=== PATIENT | female | born 1945 | race Caucasian/White ===

== ENCOUNTER 2018-05-14 09:31 | Inpatient (IN) | payer MEDICARE ==
[~2018-05-14] VITALS: Ht 161.3 cm; Wt 82.5 kg
[2018-05-14 10:32] LABS: BASOPHILS # (AUTO) 0.03 x10^3/uL (0-0.1); BASOPHILS % (AUTO) 1 % (0-1); EOSINOPHILS # (AUTO) 0.09 x10^3/uL (0-0.4); EOSINOPHILS % (AUTO) 2 % (1-7); LYMPHOCYTES # (AUTO) 0.84 x10^3/uL (1-3.4); LYMPHOCYTES % (AUTO) 15 % (22-44); MD NO; MEAN CORPUSCULAR HEMOGLOBIN 26.3 pg (27.0-34.8); MEAN CORPUSCULAR HGB CONC 33.4 g/dL (32.4-35.8); MEAN CORPUSCULAR VOLUME 78.7 fL (80-100); MEAN PLATELET VOLUME 7.2 fL (7.4-10.4); MONOCYTES # (AUTO) 0.27 x10^3/uL (0.2-0.8); MONOCYTES % (AUTO) 5 % (2-9); NEUTROPHILS # (AUTO) 4.37 x10^3/uL (1.8-6.8); NEUTROPHILS % (AUTO) 78 % (42-75); PLATELET COUNT 376 x10^3/uL (130-400); RED BLOOD COUNT 4.91 x10^6/uL (3.82-5.3); RED CELL DISTRIBUTION WIDTH 13.3 % (9.6-15.2)
[2018-05-14 10:44] LABS: CHLORIDE 109 mmol/L (98-107)
[2018-05-14 10:50] LABS: ALANINE AMINOTRANSFERASE 22 U/L (12-78); ALBUMIN 3.6 g/dL (3.4-5.0); ALKALINE PHOSPHATASE 77 U/L (45-117); ANION GAP 7 mmol/L (5-15); BILIRUBIN,TOTAL 0.6 mg/dL (0.2-1.0); CALCIUM 8.8 mg/dL (8.5-10.1); CREATININE 0.88 mg/dL (0.55-1.02); TOTAL PROTEIN 7.5 g/dL (6.4-8.2)
--- NOTE | 2018-05-14 11:15 | NUR ---
PT TO CT WITH TECH TRANSPORT
[2018-05-14] MEDS ORDERED: OMNIPAQUE 350 MG/ML, 75ML BOTTLE ONE (11:34)
--- NOTE | 2018-05-14 12:08 | NUR ---
DR WILD AT BEDSIDE, ADMIT PLAN DISCUSSED AND QUESTIONS ANSWERED.
--- NOTE | 2018-05-14 14:02 | NUR ---
REPORT FROM ISA ALMAGUER. PT SITTING UP IN [place] NOTED. FRIEND AT BEDSIDE. BP/SPO2 MONITOR IN PLACE. PT UPDATED TO POC (ADMIT, ED HOLD) AND DEMONSTRATES UNDERSTANDING.
--- NOTE | 2018-05-14 14:08 | NUR ---
ECG MONITORING IN PLACE, NSR ON MONITOR.
--- NOTE | 2018-05-14 14:54 | NUR ---
MECHANICAL SOFT MEAL TRAY DELIVERED TO PT.
[2018-05-14] MEDS: SODIUM CHLORIDE 0.9% 1,000 ML IV SCH (16:29)
[2018-05-14] MEDS ORDERED: ACETAMINOPHEN 325 MG TABLET PO PRN (16:30)
[2018-05-14] MEDS ORDERED: LABETALOL 5MG/ML, 20ML IVPush PRN (16:30)
[2018-05-14] MEDS ORDERED: hydrALAzine 20 MG/ML, 1ML IVPush PRN (16:30)
[2018-05-14 16:50] LABS: INTERNATIONAL NORMALIZED RATIO 0.94 (0.93-1.1); PROTHROMBIN TIME 9.9 Seconds (9.6-11.5)
--- NOTE | 2018-05-14 16:59 | NUR ---
REPORT TO ISA BOTELLO ON FLOOR. PT PREPARED FOR TRANSPORT.
[2018-05-14 17:12] LABS: HCT (SEDRATE) 37.5 % (34.6-47.8)
[2018-05-14 17:43] VITALS: BP 176/91
[2018-05-14 19:24] VITALS: BP 195/97
[2018-05-14] MEDS ORDERED: LISINOPRIL 5 MG TABLET PO SCH (21:00)
[2018-05-15 00:46] VITALS: BP 155/84
[2018-05-15 05:39] LABS: BASOPHILS # (AUTO) 0.02 x10^3/uL (0-0.1); BASOPHILS % (AUTO) 0 % (0-1); EOSINOPHILS # (AUTO) 0.19 x10^3/uL (0-0.4); EOSINOPHILS % (AUTO) 4 % (1-7); LYMPHOCYTES # (AUTO) 1.07 x10^3/uL (1-3.4); LYMPHOCYTES % (AUTO) 20 % (22-44); MD NO; MEAN CORPUSCULAR HEMOGLOBIN 26.3 pg (27.0-34.8); MEAN CORPUSCULAR HGB CONC 33.4 g/dL (32.4-35.8); MEAN CORPUSCULAR VOLUME 78.9 fL (80-100); MEAN PLATELET VOLUME 7.4 fL (7.4-10.4); MONOCYTES # (AUTO) 0.28 x10^3/uL (0.2-0.8); MONOCYTES % (AUTO) 5 % (2-9); NEUTROPHILS # (AUTO) 3.83 x10^3/uL (1.8-6.8); NEUTROPHILS % (AUTO) 71 % (42-75); PLATELET COUNT 308 x10^3/uL (130-400); RED BLOOD COUNT 4.41 x10^6/uL (3.82-5.3); RED CELL DISTRIBUTION WIDTH 13.8 % (9.6-15.2)
[2018-05-15 05:51] LABS: CHLORIDE 113 mmol/L (98-107)
[2018-05-15 06:01] LABS: ALANINE AMINOTRANSFERASE 17 U/L (12-78); ALBUMIN 2.9 g/dL (3.4-5.0); ALKALINE PHOSPHATASE 67 U/L (45-117); ANION GAP 7 mmol/L (5-15); BILIRUBIN,TOTAL 0.3 mg/dL (0.2-1.0); CALCIUM 8.9 mg/dL (8.5-10.1); CREATININE 0.65 mg/dL (0.55-1.02); TOTAL PROTEIN 6.1 g/dL (6.4-8.2)
[2018-05-15 07:45] VITALS: BP 156/89
[2018-05-15] MEDS ORDERED: HYDROCHLOROTHIAZIDE 25 MG TABLET PO SCH (09:00)
[2018-05-15] MEDS ORDERED: LISINOPRIL 20 MG TABLET PO SCH (09:00)
[2018-05-15] MEDS ORDERED: OMNIPAQUE 350 MG/ML, 100ML BOTTLE ONE ×2 (10:22→10:26)
[2018-05-15] MEDS: SODIUM CHLORIDE 0.9% 1,000 ML IV SCH (12:24)
[2018-05-15] MEDS ORDERED: LISI-170 PO (13:10)
[2018-05-15] MEDS ORDERED: CLON0.1T22 PO (13:10)
[2018-05-15] MEDS ORDERED: HYDR25TA6 PO (13:10)
[2018-05-15] MEDS ORDERED: POTA20TA6 PO (13:18)
[2018-05-15 14:52] VITALS: BP 149/83
== END 2018-05-15 15:30 | disposition home or self-care (01) | DRG 204 ==
LOC: ED 13:02 → EDBD 13:34 → EDIP 13:34 → 3NE 16:57 → DCLOUNGE 05-15 15:12
PROVIDERS: ADMIT Hospitalist; ATTEND Hospitalist
DX: R04.2 Hemoptysis (principal); I10 Essential (primary) hypertension; I16.0 Hypertensive urgency; R91.8 Other nonspecific abnormal finding of lung field; R73.9 Hyperglycemia, unspecified; R71.8 Other abnormality of red blood cells; R59.0 Localized enlarged lymph nodes; R06.89 Other abnormalities of breathing; Z85.828 Personal history of other malignant neoplasm of skin; Z85.42 Personal history of malignant neoplasm of other parts of uterus; Z87.891 Personal history of nicotine dependence; Z90.710 Acquired absence of both cervix and uterus; Z91.19 Patient's noncompliance with other medical treatment and regimen; Z93.3 Colostomy status; Z88.5 Allergy status to narcotic agent; T14.90XA Injury, unspecified, initial encounter
CPT/HCPCS: 36415; 71046; 71250; 71260; 74177; 80053; 82728; 83540; 83550; 85025; 85610; 85651; 85730; 86140; 87070; 87205; 93005; 99285; G0378; Q9967; J7030

== ENCOUNTER 2018-05-18 09:04 | Day surgery (SDC) | payer MEDICARE ==
[~2018-05-18] VITALS: Ht 161.3 cm; Wt 80.1 kg
[~2018-05-18 09:04] MED LIST: CLON0.1T22 PO; HYDR25TA6 PO; LISI-170 PO; POTA20TA6 PO
[2018-05-18] MEDS ORDERED: LACTATED RINGERS 1,000 ML IV SCH (10:17)
[2018-05-18 10:20] VITALS: BP 139/84
[2018-05-18] MEDS ORDERED: HYDR25TA6 PO (10:20)
[2018-05-18] MEDS ORDERED: CLON0.1T22 PO (10:20)
[2018-05-18] MEDS ORDERED: LISI-170 PO (10:20)
[2018-05-18] MEDS ORDERED: POTA20TA6 PO (10:20)
[2018-05-18] MEDS ORDERED: PROPOFOL 50 ML ONE ×2 (10:55→11:49)
[2018-05-18] MEDS ORDERED: MIDAZOLAM 1 MG/ML, 2ML ONE (10:55)
[2018-05-18] MEDS ORDERED: FENTANYL PF 100 MCG/2ML ONE ×2 (10:55→11:49)
[2018-05-18] MEDS ORDERED: ALBUTEROL SULFATE 2.5 MG/3 ML ONE (12:19)
[2018-05-18] MEDS ORDERED: KETOROLAC 30 MG/1 ML IV PRN (12:30)
[2018-05-18] MEDS ORDERED: LORazepam 2 MG/ML, 1ML IVPush PRN (12:30)
[2018-05-18] MEDS ORDERED: PROMETHAZINE 25 MG/ML, 1ML IV PRN (12:30)
[2018-05-18] MEDS ORDERED: FENTANYL PF 100 MCG/2ML IV PRN (12:30)
[2018-05-18] MEDS ORDERED: ACETAMINOPHEN 325 MG TABLET PO PRN (12:30)
[2018-05-18] MEDS ORDERED: OXYcodone 5 MG/5 ML ORAL.SOL UDC PO PRN (12:30)
[2018-05-18] MEDS ORDERED: ALBUTEROL SULFATE 2.5 MG/3 ML NPPB PRN (12:30)
[2018-05-18] MEDS ORDERED: ONDANSETRON 2MG/ML, 2ML IV PRN (12:30)
[2018-05-18] MEDS ORDERED: ROCURONIUM 10MG/ML,5ML ONE (14:40)
[2018-05-18] MEDS ORDERED: SUCCINYLCHOLINE 20 MG/ML, 10ML ONE (14:40)
== END 2018-05-18 14:30 | disposition home or self-care (01) ==
LOC: OUT 09:04
PROVIDERS: ATTEND Internal Medicine
DX: J18.9 Pneumonia, unspecified organism (principal); I10 Essential (primary) hypertension; M35.9 Systemic involvement of connective tissue, unspecified; Z88.8 Allergy status to other drugs, medicaments and biological substances; Z85.828 Personal history of other malignant neoplasm of skin; Z85.42 Personal history of malignant neoplasm of other parts of uterus; Z90.710 Acquired absence of both cervix and uterus; Z93.3 Colostomy status
CPT/HCPCS: 31623; 31624; 31627; 31628; 31629; 71045; 76000; 88112; 88172; 88173; 88177; 88305; 94640; J0330; J2250; J2704; J3010; J7120; J7613

== ENCOUNTER 2018-05-25 03:18 | Inpatient (IN) | payer MEDICARE ==
[~2018-05-25] VITALS: Ht 160 cm; Wt 84.5 kg
[2018-05-25] MEDS ORDERED: MORPHINE SULFATE 4 MG/ML, 1ML ONE ×3 (03:46→04:48)
[2018-05-25] MEDS ORDERED: ONDANSETRON 2MG/ML, 2ML ONE (03:46)
[2018-05-25] MEDS: MORPHINE SULFATE 4 MG/ML, 1ML IVPush PRN ×7 (03:50→20:58)
[2018-05-25] MEDS ORDERED: MORPHINE SULFATE 4 MG/ML, 1ML IVPush PRN (04:00)
[2018-05-25] MEDS ORDERED: SODIUM CHLORIDE 0.9% 1,000ML IVBOLUS ONE ×2 (04:00)
[2018-05-25] MEDS ORDERED: ONDANSETRON 2MG/ML, 2ML IVPush ONE (04:00)
[2018-05-25] MEDS ORDERED: SODIUM CHLORIDE FLUSH 10ML SYR IVF ONE ×2 (04:00)
--- NOTE | 2018-05-25 04:08 | NUR ---
PT HERE FOR SUDDEN ONSET CHEST PAIN ON THE LEFT SIDE. PT TACHYCARDIC. PIV PLACED AND PT MEDICATED FOR PAIN AND NAUSEA. FLUIDS RUNNING. PT TO CT.
[2018-05-25 04:12] LABS: MEAN CORPUSCULAR HEMOGLOBIN 26.1 pg (27.0-34.8); MEAN CORPUSCULAR HGB CONC 33.6 g/dL (32.4-35.8); MEAN CORPUSCULAR VOLUME 77.9 fL (80-100); MEAN PLATELET VOLUME 7.3 fL (7.4-10.4); PLATELET COUNT 380 x10^3/uL (130-400); RED BLOOD COUNT 4.72 x10^6/uL (3.82-5.3); RED CELL DISTRIBUTION WIDTH 13.8 % (9.6-15.2)
[2018-05-25 04:20] LABS: INTERNATIONAL NORMALIZED RATIO 0.97 (0.93-1.1); PROTHROMBIN TIME 10.2 Seconds (9.6-11.5)
[2018-05-25 04:22] LABS: ALBUMIN 3.2 g/dL (3.4-5.0); ANION GAP 8 mmol/L (5-15); CALCIUM 9.4 mg/dL (8.5-10.1); CHLORIDE 106 mmol/L (98-107)
[2018-05-25 04:28] LABS: ALANINE AMINOTRANSFERASE 27 U/L (12-78); ALKALINE PHOSPHATASE 70 U/L (45-117); BILIRUBIN,TOTAL 0.5 mg/dL (0.2-1.0); CREATININE 0.96 mg/dL (0.55-1.02); TOTAL PROTEIN 6.9 g/dL (6.4-8.2); TROPONIN I < 0.015 ng/mL (0.000-0.045)
[2018-05-25 04:34] LABS: BASOPHILS % (AUTO) 0 % (0-1); EOSINOPHILS # (AUTO) 0.05 x10^3/uL (0-0.4); EOSINOPHILS % (AUTO) 1 % (1-7); LYMPHOCYTES # (AUTO) 0.36 x10^3/uL (1-3.4); LYMPHOCYTES % (AUTO) 4 % (22-44); MD SCAN; MONOCYTES # (AUTO) 0.13 x10^3/uL (0.2-0.8); MONOCYTES % (AUTO) 1 % (2-9); NEUTROPHILS # (AUTO) 9.31 x10^3/uL (1.8-6.8); NEUTROPHILS % (AUTO) 95 % (42-75)
[2018-05-25] MEDS ORDERED: OMNIPAQUE 350 MG/ML, 100ML BOTTLE ONE (05:00)
--- NOTE | 2018-05-25 05:15 | NUR ---
PT REMEDICATED FOR PAIN. PT SAYS PAIN HAS SLIGHTLY IMPROVED. PT STILL TACHY. AWARE. WAITING FOR CT. SPOUSE AT BEDSIDE
[2018-05-25] MEDS ORDERED: CEFTRIAXONE PMX 1GM/50ML 50 ML ONE (05:26)
[2018-05-25] MEDS ORDERED: AZITHROMYCIN 500 MG in SODIUM CHLORIDE 0.9% 250 ML IVPB ONE (05:30)
[2018-05-25] MEDS ORDERED: CEFTRIAXONE PMX 1GM/50ML 50 ML IVPB ONE (05:30)
--- NOTE | 2018-05-25 05:35 | NUR ---
ABX RUNNING. HR ELEVATED. AWARE. PT RESTING AND SAYS PAIN HAS IMPROVED TO 5/10. CALL LIGHT IN REACH
[2018-05-25] MEDS ORDERED: ACETAMINOPHEN 325 MG TABLET PO PRN (06:00)
[2018-05-25] MEDS ORDERED: ONDANSETRON 2MG/ML, 2ML IVPush PRN (06:00)
[2018-05-25] MEDS ORDERED: ALBUTEROL/IPRATROPIUM 2.5MG/0.5MG, 3 ML HHN PRN (06:00)
[2018-05-25 06:27] VITALS: BP 135/74
[2018-05-25] MEDS ORDERED: ACETAMINOPHEN 650 MG SUPP PR PRN (07:00)
[2018-05-25] MEDS ORDERED: PHARMACOKINETIC MONITORING MC PRN (07:00)
[2018-05-25] MEDS ORDERED: ONDANSETRON 2MG/ML, 2ML IVPB PRN (07:00)
[2018-05-25] MEDS ORDERED: VANCOMYCIN PER PHARMACY MC PRN (07:00)
[2018-05-25] MEDS ORDERED: PHARMACY MAY ADJ FOR RENAL FX MC PRN (07:00)
[2018-05-25] MEDS ORDERED: KETOROLAC 30 MG/1 ML IVPush PRN (07:00)
[2018-05-25] MEDS ORDERED: DOCUSATE 100 MG CAPSULE PO PRN (07:00)
[2018-05-25] MEDS ORDERED: morphine SULFATE 10 MG/ML, 1ML ONE (07:06)
[2018-05-25] MEDS: PIPERACILLIN/TAZO/PMX 4.5GM 100 ML IVPB SCH ×2 (08:24→16:09)
[2018-05-25] MEDS ORDERED: LORazepam 2 MG/ML, 1ML ONE (08:42)
[2018-05-25] MEDS: LORazepam 2 MG/ML, 1ML IVPush PRN (08:45)
[2018-05-25] MEDS ORDERED: HYDROCHLOROTHIAZIDE 25 MG TABLET PO SCH (09:00)
[2018-05-25] MEDS ORDERED: LISINOPRIL 20 MG TABLET PO SCH ×2 (09:00→21:00)
[2018-05-25] MEDS: VANCOMYCIN 1,500 MG in SODIUM CHLORIDE 0.9% 250 ML IV SCH (09:33)
[2018-05-25] MEDS: GUAIFENESIN 200 MG TABLET PO SCH ×3 (09:42→20:58)
[2018-05-25] MEDS: ACETAMINOPHEN 325 MG TABLET PO SCH ×4 (09:42→20:58)
[2018-05-25] MEDS ORDERED: KETOROLAC 30 MG/1 ML IVPush ONE (10:00)
[2018-05-25 10:16] LABS: TROPONIN I < 0.015 ng/mL (0.000-0.045)
[2018-05-25 10:37] LABS: RAPID INFLUENZA A Negative (Negative); RAPID INFLUENZA B Negative (Negative)
[2018-05-25] MEDS ORDERED: LIDOCAINE-MPF 1%, 5ML ONE (12:04)
[2018-05-25 14:00] VITALS: BP 118/78
[2018-05-25] MEDS ORDERED: CHLO25TA PO (15:40)
[2018-05-25 16:05] LABS: TROPONIN I < 0.015 ng/mL (0.000-0.045)
[2018-05-25] MEDS: KETOROLAC 30 MG/1 ML IVPush PRN (16:09)
[2018-05-25 19:06] VITALS: BP 125/75
[2018-05-26] MEDS: PIPERACILLIN/TAZO/PMX 4.5GM 100 ML IVPB SCH ×4 (00:03→23:31)
[2018-05-26] MEDS: KETOROLAC 30 MG/1 ML IVPush PRN (00:04)
[2018-05-26] MEDS: ACETAMINOPHEN 325 MG TABLET PO SCH ×6 (00:04→23:26)
[2018-05-26 01:23] VITALS: BP 146/79
[2018-05-26] MEDS: MORPHINE SULFATE 4 MG/ML, 1ML IVPush PRN ×5 (04:08→20:21)
[2018-05-26 05:23] LABS: MEAN CORPUSCULAR HEMOGLOBIN 26.2 pg (27.0-34.8); MEAN CORPUSCULAR HGB CONC 32.5 g/dL (32.4-35.8); MEAN CORPUSCULAR VOLUME 80.6 fL (80-100); MEAN PLATELET VOLUME 7.6 fL (7.4-10.4); PLATELET COUNT 370 x10^3/uL (130-400); RED BLOOD COUNT 4.73 x10^6/uL (3.82-5.3); RED CELL DISTRIBUTION WIDTH 13.9 % (9.6-15.2)
[2018-05-26 05:25] LABS: ALBUMIN 2.7 g/dL (3.4-5.0); ANION GAP 9 mmol/L (5-15); CALCIUM 8.9 mg/dL (8.5-10.1); CHLORIDE 105 mmol/L (98-107)
[2018-05-26] MEDS: GUAIFENESIN 200 MG TABLET PO SCH ×4 (05:26→20:20)
[2018-05-26 05:30] LABS: ALANINE AMINOTRANSFERASE 22 U/L (12-78); ALKALINE PHOSPHATASE 55 U/L (45-117); BILIRUBIN,TOTAL 0.7 mg/dL (0.2-1.0); CREATININE 1.43 mg/dL (0.55-1.02); TOTAL PROTEIN 6.7 g/dL (6.4-8.2)
[2018-05-26] MEDS ORDERED: DOXYCYCLINE 100 MG in DEXTROSE 5% 250 ML IV SCH (05:30)
[2018-05-26] MEDS ORDERED: CEFTRIAXONE PMX 1GM/50ML 50 ML IV SCH (05:30)
[2018-05-26 06:24] LABS: MD YES
[2018-05-26 06:26] LABS: BAND#(MANUAL) 1.14 x10^3/uL; BANDS%(MANUAL) 6 % (0-7); LYMPH#(MANUAL) 1.52 x10^3/uL (1-3.4); LYMPHS% (MANUAL) 8 % (22-44); MONOS#(MANUAL) 0.19 x10^3/uL (0.3-2.7); MONOS% (MANUAL) 1 % (2-9); SEG#(MANUAL) 16.15 x10^3/uL (1.8-6.8); SEGS% (MANUAL) 85 % (42-75)
[2018-05-26 06:27] LABS: <RBC MORPHOLOGY> NORMAL
[2018-05-26 06:28] LABS: <PLATELET ESTIMATE> ADEQUATE; <PLT MORPHOLOGY> NORMAL PLT MORPH
[2018-05-26 07:28] VITALS: BP 144/79
[2018-05-26] MEDS ORDERED: D5%-0.45% NACL 1,000 ML IV SCH (08:00)
[2018-05-26] MEDS: VANCOMYCIN 1,500 MG in SODIUM CHLORIDE 0.9% 250 ML IV SCH (09:39)
[2018-05-26 13:30] VITALS: BP 138/78
[2018-05-26] MEDS: SODIUM CHLORIDE 0.9% 1,000 ML IV SCH (16:08)
[2018-05-26 17:00] LABS: ANION GAP 7 mmol/L (5-15); CALCIUM 8.8 mg/dL (8.5-10.1); CHLORIDE 106 mmol/L (98-107); CREATININE 1.04 mg/dL (0.55-1.02)
[2018-05-26 20:27] VITALS: BP 165/89
[2018-05-27] MEDS: MORPHINE SULFATE 4 MG/ML, 1ML IVPush PRN ×5 (00:43→20:34)
[2018-05-27 01:12] VITALS: BP 168/82
[2018-05-27] MEDS: SODIUM CHLORIDE 0.9% 1,000 ML IV SCH ×2 (03:31→14:18)
[2018-05-27] MEDS: ACETAMINOPHEN 325 MG TABLET PO SCH ×5 (03:32→20:19)
[2018-05-27] MEDS: GUAIFENESIN 200 MG TABLET PO SCH ×4 (05:14→20:20)
[2018-05-27 06:38] VITALS: BP 176/97
[2018-05-27] MEDS: LORazepam 2 MG/ML, 1ML IVPush PRN (07:46)
[2018-05-27] MEDS: PIPERACILLIN/TAZO/PMX 4.5GM 100 ML IVPB SCH (07:46)
[2018-05-27] MEDS: METOPROLOL TARTRATE 25 MG TABLET PO SCH ×2 (08:12→18:33)
[2018-05-27 09:22] LABS: MEAN CORPUSCULAR HGB CONC 32.7 g/dL (32.4-35.8); MEAN CORPUSCULAR VOLUME 79.5 fL (80-100); MEAN PLATELET VOLUME 7.4 fL (7.4-10.4); PLATELET COUNT 378 x10^3/uL (130-400); RED BLOOD COUNT 4.61 x10^6/uL (3.82-5.3); RED CELL DISTRIBUTION WIDTH 14.1 % (9.6-15.2)
[2018-05-27 09:27] LABS: ANION GAP 7 mmol/L (5-15); CALCIUM 8.8 mg/dL (8.5-10.1); CHLORIDE 106 mmol/L (98-107); CREATININE 0.57 mg/dL (0.55-1.02)
[2018-05-27 09:36] LABS: BASOPHILS % (AUTO) 0 % (0-1); EOSINOPHILS % (AUTO) 0 % (1-7); LYMPHOCYTES # (AUTO) 0.36 x10^3/uL (1-3.4); LYMPHOCYTES % (AUTO) 2 % (22-44); MD SCAN; MONOCYTES # (AUTO) 0.24 x10^3/uL (0.2-0.8); MONOCYTES % (AUTO) 1 % (2-9); NEUTROPHILS # (AUTO) 22.54 x10^3/uL (1.8-6.8); NEUTROPHILS % (AUTO) 97 % (42-75)
[2018-05-27] MEDS ORDERED: VANCOMYCIN 1,600 MG in SODIUM CHLORIDE 0.9% 250 ML IV SCH (12:00)
[2018-05-27 12:16] LABS: HCT (SEDRATE) 36.6 % (34.6-47.8)
[2018-05-27 12:43] LABS: MEAN CORPUSCULAR HEMOGLOBIN 25.5 pg (27.0-34.8); MEAN CORPUSCULAR HGB CONC 31.9 g/dL (32.4-35.8); MEAN CORPUSCULAR VOLUME 79.8 fL (80-100); MEAN PLATELET VOLUME 7.5 fL (7.4-10.4); PLATELET COUNT 408 x10^3/uL (130-400); RED BLOOD COUNT 4.64 x10^6/uL (3.82-5.3); RED CELL DISTRIBUTION WIDTH 14.7 % (9.6-15.2)
[2018-05-27 13:14] LABS: BASOPHILS # (AUTO) 0.03 x10^3/uL (0-0.1); BASOPHILS % (AUTO) 0 % (0-1); EOSINOPHILS # (AUTO) 0.01 x10^3/uL (0-0.4); EOSINOPHILS % (AUTO) 0 % (1-7); LYMPHOCYTES # (AUTO) 0.53 x10^3/uL (1-3.4); LYMPHOCYTES % (AUTO) 2 % (22-44); MD SCAN; MONOCYTES % (AUTO) 3 % (2-9); NEUTROPHILS % (AUTO) 95 % (42-75)
[2018-05-27 14:30] VITALS: BP 174/84
[2018-05-27] MEDS ORDERED: FENTANYL PF 250 MCG/5ML ONE (14:53)
[2018-05-27] MEDS ORDERED: BUPIVACAINE/PF-EPI 0.5% 1:200K ONE (15:42)
[2018-05-27] MEDS ORDERED: BUPIVACAINE/PF-EPI 0.5% 1:200K INFIL ONE (16:35)
[2018-05-27] MEDS ORDERED: PROPOFOL 10 MG/ML, 20ML ONE (16:51)
[2018-05-27] MEDS ORDERED: METOCLOPRAMIDE 5 MG/ML, 2ML ONE (16:51)
[2018-05-27] MEDS ORDERED: SUCCINYLCHOLINE 20 MG/ML, 10ML ONE (16:51)
[2018-05-27] MEDS ORDERED: ONDANSETRON 2MG/ML, 2ML ONE (16:51)
[2018-05-27] MEDS ORDERED: DEXAMETHASONE 4 MG/ML, 1ML ONE (16:51)
[2018-05-27] MEDS ORDERED: ROCURONIUM 10MG/ML,5ML ONE (16:51)
[2018-05-27] MEDS ORDERED: OXYcodone 5 MG/5 ML ORAL.SOL UDC ONE (17:24)
[2018-05-27] MEDS ORDERED: MORPHINE SULFATE 4 MG/ML, 1ML ONE (17:24)
[2018-05-27] MEDS ORDERED: OXYcodone 5 MG/5 ML ORAL.SOL UDC PO PRN (17:30)
[2018-05-27] MEDS ORDERED: PROMETHAZINE 25 MG/ML, 1ML IV PRN (17:30)
[2018-05-27] MEDS ORDERED: MEPERIDINE/PF 25MG/0.5ML IVPush PRN (17:30)
[2018-05-27] MEDS ORDERED: hydrALAzine 20 MG/ML, 1ML IV PRN (17:30)
[2018-05-27] MEDS ORDERED: ONDANSETRON 2MG/ML, 2ML IV PRN (17:30)
[2018-05-27] MEDS ORDERED: MIDAZOLAM 1 MG/ML, 2ML IV PRN (17:30)
[2018-05-27] MEDS ORDERED: FENTANYL PF 100 MCG/2ML IV PRN (17:30)
[2018-05-27] MEDS ORDERED: MORPHINE SULFATE 4 MG/ML, 1ML IVPush PRN (17:30)
[2018-05-27] MEDS ORDERED: HYDROmorphone 2 MG/ML, 1ML IVPush PRN (17:30)
[2018-05-27] MEDS ORDERED: hydrALAzine 20 MG/ML, 1ML ONE (17:31)
[2018-05-27] MEDS ORDERED: ALBUTEROL SULFATE 2.5 MG/3 ML ONE (17:36)
[2018-05-27] MEDS: hydrALAzine 20 MG/ML, 1ML IV PRN (17:40)
[2018-05-27] MEDS ORDERED: ALBUTEROL SULFATE 2.5 MG/3 ML NPPB PRN (18:00)
[2018-05-27 18:30] VITALS: BP 139/81
[2018-05-27 18:53] VITALS: BP 137/80
[2018-05-27] MEDS: LINEZOLID 600 MG TABLET PO SCH (20:20)
[2018-05-28] VITALS (8 sets, daily range): BP systolic 141–185; BP diastolic 79–94
[2018-05-28] MEDS: ACETAMINOPHEN 325 MG TABLET PO SCH ×3 (00:01→08:36)
[2018-05-28] MEDS: MORPHINE SULFATE 4 MG/ML, 1ML IVPush PRN ×5 (01:06→23:35)
[2018-05-28] MEDS: SODIUM CHLORIDE 0.9% 1,000 ML IV SCH ×2 (03:02→12:28)
[2018-05-28 06:00] LABS: MEAN CORPUSCULAR HEMOGLOBIN 25.3 pg (27.0-34.8); MEAN CORPUSCULAR VOLUME 79.2 fL (80-100); MEAN PLATELET VOLUME 7.7 fL (7.4-10.4); PLATELET COUNT 425 x10^3/uL (130-400); RED BLOOD COUNT 4.19 x10^6/uL (3.82-5.3); RED CELL DISTRIBUTION WIDTH 14.5 % (9.6-15.2)
[2018-05-28 06:07] LABS: ANION GAP 6 mmol/L (5-15); CALCIUM 8.2 mg/dL (8.5-10.1); CHLORIDE 107 mmol/L (98-107); CREATININE 0.61 mg/dL (0.55-1.02)
[2018-05-28] MEDS: METOPROLOL TARTRATE 25 MG TABLET PO SCH ×2 (06:31→18:20)
[2018-05-28] MEDS: GUAIFENESIN 200 MG TABLET PO SCH ×4 (06:32→20:41)
[2018-05-28] MEDS ORDERED: FENTANYL PF 100 MCG/2ML IVPush PRN (07:00)
[2018-05-28 07:02] LABS: BASOPHILS % (AUTO) 0 % (0-1); EOSINOPHILS % (AUTO) 0 % (1-7); LYMPHOCYTES # (AUTO) 0.51 x10^3/uL (1-3.4); LYMPHOCYTES % (AUTO) 3 % (22-44); MD SCAN; MONOCYTES # (AUTO) 0.58 x10^3/uL (0.2-0.8); MONOCYTES % (AUTO) 3 % (2-9); NEUTROPHILS # (AUTO) 17.38 x10^3/uL (1.8-6.8); NEUTROPHILS % (AUTO) 94 % (42-75)
[2018-05-28] MEDS: LINEZOLID 600 MG TABLET PO SCH ×2 (08:37→20:41)
[2018-05-28] MEDS: AZITHROMYCIN 500 MG TABLET PO SCH (08:37)
[2018-05-28] MEDS ORDERED: ACETAMINOPHEN 325 MG TABLET PO PRN (10:30)
[2018-05-28] MEDS ORDERED: LIDODERM 5% PATCH TD SCH (10:30)
[2018-05-28] MEDS: DOCUSATE 100 MG CAPSULE PO SCH ×2 (10:54→20:41)
[2018-05-28] MEDS: HYDROcodone/APAP 5/325 TABLET PO PRN ×3 (10:55→20:41)
[2018-05-28] MEDS ORDERED: LIDODERM 5% PATCH TD PRN (11:00)
[2018-05-28] MEDS: PIPERACILLIN/TAZO/PMX 4.5GM 100 ML IV SCH ×2 (12:27→18:20)
[2018-05-28] MEDS: hydrALAzine 20 MG/ML, 1ML IV PRN (15:32)
[2018-05-29] MEDS: PIPERACILLIN/TAZO/PMX 4.5GM 100 ML IV SCH ×4 (00:41→17:50)
[2018-05-29] MEDS: HYDROcodone/APAP 5/325 TABLET PO PRN ×2 (00:41→05:29)
[2018-05-29 01:38] VITALS: BP 160/86
[2018-05-29] MEDS: MORPHINE SULFATE 4 MG/ML, 1ML IVPush PRN ×4 (04:03→20:28)
[2018-05-29] MEDS: GUAIFENESIN 200 MG TABLET PO SCH ×4 (05:29→20:27)
[2018-05-29] MEDS: METOPROLOL TARTRATE 25 MG TABLET PO SCH ×2 (05:29→17:50)
[2018-05-29 08:15] VITALS: BP 173/82
[2018-05-29] MEDS: AZITHROMYCIN 500 MG TABLET PO SCH (08:53)
[2018-05-29] MEDS: LINEZOLID 600 MG TABLET PO SCH (08:53)
[2018-05-29] MEDS: DOCUSATE 100 MG CAPSULE PO SCH ×2 (08:53→20:27)
[2018-05-29] MEDS: HYDROcodone/APAP 10/325 MG TABLET PO PRN ×4 (09:34→22:07)
[2018-05-29 09:46] LABS: MEAN CORPUSCULAR HGB CONC 31.8 g/dL (32.4-35.8); MEAN CORPUSCULAR VOLUME 78.6 fL (80-100); MEAN PLATELET VOLUME 7.1 fL (7.4-10.4); PLATELET COUNT 405 x10^3/uL (130-400); RED BLOOD COUNT 4.35 x10^6/uL (3.82-5.3); RED CELL DISTRIBUTION WIDTH 14.7 % (9.6-15.2)
[2018-05-29 10:08] LABS: MD MORPH REVIEW ONLY
[2018-05-29 10:09] LABS: ANISOCYTOSIS 1+; BASOPHILS # (AUTO) 0.04 x10^3/uL (0-0.1); BASOPHILS % (AUTO) 0 % (0-1); EOSINOPHILS # (AUTO) 0.08 x10^3/uL (0-0.4); EOSINOPHILS % (AUTO) 1 % (1-7); LYMPHOCYTES % (AUTO) 4 % (22-44); MONOCYTES # (AUTO) 0.47 x10^3/uL (0.2-0.8); MONOCYTES % (AUTO) 4 % (2-9); NEUTROPHILS # (AUTO) 10.82 x10^3/uL (1.8-6.8); NEUTROPHILS % (AUTO) 91 % (42-75); OVALOCYTES 1+
[2018-05-29 10:10] LABS: <PLATELET ESTIMATE> INCREASED; <PLT MORPHOLOGY> NORMAL PLT MORPH
[2018-05-29 10:27] LABS: ANION GAP 7 mmol/L (5-15); CALCIUM 8.6 mg/dL (8.5-10.1); CHLORIDE 103 mmol/L (98-107)
[2018-05-29 11:28] VITALS: BP 145/80
[2018-05-29 13:41] VITALS: BP 154/77
[2018-05-29 14:31] VITALS: BP 157/79
[2018-05-29] MEDS: SENNA/DOCUSATE TABLET PO SCH (16:24)
[2018-05-29 20:09] VITALS: BP 145/75
[2018-05-30] VITALS (7 sets, daily range): BP systolic 155–182; BP diastolic 80–98
[2018-05-30] MEDS: PIPERACILLIN/TAZO/PMX 4.5GM 100 ML IV SCH ×4 (00:13→18:19)
[2018-05-30] MEDS: HYDROcodone/APAP 10/325 MG TABLET PO PRN ×5 (02:28→21:23)
[2018-05-30] MEDS: GUAIFENESIN 200 MG TABLET PO SCH ×4 (06:32→20:28)
[2018-05-30] MEDS: METOPROLOL TARTRATE 25 MG TABLET PO SCH ×2 (06:33→17:08)
[2018-05-30] MEDS: SENNA/DOCUSATE TABLET PO SCH (08:05)
[2018-05-30] MEDS: AZITHROMYCIN 500 MG TABLET PO SCH (08:05)
[2018-05-30] MEDS: DOCUSATE 100 MG CAPSULE PO SCH ×2 (08:05→20:28)
[2018-05-30 10:44] LABS: BASOPHILS # (AUTO) 0.03 x10^3/uL (0-0.1); BASOPHILS % (AUTO) 0 % (0-1); EOSINOPHILS # (AUTO) 0.06 x10^3/uL (0-0.4); EOSINOPHILS % (AUTO) 1 % (1-7); LYMPHOCYTES # (AUTO) 0.55 x10^3/uL (1-3.4); LYMPHOCYTES % (AUTO) 4 % (22-44); MD NO; MEAN CORPUSCULAR HEMOGLOBIN 25.1 pg (27.0-34.8); MEAN CORPUSCULAR HGB CONC 32.1 g/dL (32.4-35.8); MEAN CORPUSCULAR VOLUME 78.1 fL (80-100); MONOCYTES # (AUTO) 0.49 x10^3/uL (0.2-0.8); MONOCYTES % (AUTO) 4 % (2-9); NEUTROPHILS # (AUTO) 11.96 x10^3/uL (1.8-6.8); NEUTROPHILS % (AUTO) 91 % (42-75); PLATELET COUNT 421 x10^3/uL (130-400); RED BLOOD COUNT 4.53 x10^6/uL (3.82-5.3); RED CELL DISTRIBUTION WIDTH 14.9 % (9.6-15.2)
[2018-05-30] MEDS: MORPHINE SULFATE 4 MG/ML, 1ML IVPush PRN (20:28)
[2018-05-31] MEDS: PIPERACILLIN/TAZO/PMX 4.5GM 100 ML IV SCH ×4 (00:20→17:44)
[2018-05-31] MEDS: hydrALAzine 20 MG/ML, 1ML IV PRN (00:24)
[2018-05-31] MEDS: HYDROcodone/APAP 10/325 MG TABLET PO PRN ×5 (01:51→21:05)
[2018-05-31 02:06] VITALS: BP 183/78
[2018-05-31] MEDS: GUAIFENESIN 200 MG TABLET PO SCH ×4 (06:13→21:05)
[2018-05-31] MEDS: METOPROLOL TARTRATE 25 MG TABLET PO SCH ×2 (06:13→17:41)
[2018-05-31 07:35] VITALS: BP 136/74
[2018-05-31] MEDS: DOCUSATE 100 MG CAPSULE PO SCH ×2 (08:16→21:05)
[2018-05-31] MEDS: SENNA/DOCUSATE TABLET PO SCH (08:16)
[2018-05-31 08:25] LABS: BASOPHILS # (AUTO) 0.07 x10^3/uL (0-0.1); BASOPHILS % (AUTO) 1 % (0-1); EOSINOPHILS # (AUTO) 0.11 x10^3/uL (0-0.4); EOSINOPHILS % (AUTO) 1 % (1-7); LYMPHOCYTES # (AUTO) 0.59 x10^3/uL (1-3.4); LYMPHOCYTES % (AUTO) 5 % (22-44); MD NO; MEAN CORPUSCULAR HEMOGLOBIN 25.7 pg (27.0-34.8); MEAN CORPUSCULAR HGB CONC 32.6 g/dL (32.4-35.8); MEAN CORPUSCULAR VOLUME 78.9 fL (80-100); MEAN PLATELET VOLUME 6.7 fL (7.4-10.4); MONOCYTES # (AUTO) 0.51 x10^3/uL (0.2-0.8); MONOCYTES % (AUTO) 5 % (2-9); NEUTROPHILS % (AUTO) 89 % (42-75); PLATELET COUNT 440 x10^3/uL (130-400); RED BLOOD COUNT 4.15 x10^6/uL (3.82-5.3); RED CELL DISTRIBUTION WIDTH 14.8 % (9.6-15.2)
[2018-05-31 08:33] LABS: ALBUMIN 1.8 g/dL (3.4-5.0); ANION GAP 7 mmol/L (5-15); CALCIUM 8.1 mg/dL (8.5-10.1); CHLORIDE 102 mmol/L (98-107)
[2018-05-31 08:37] LABS: ALANINE AMINOTRANSFERASE 23 U/L (12-78); ALKALINE PHOSPHATASE 133 U/L (45-117); BILIRUBIN,TOTAL 0.9 mg/dL (0.2-1.0); CREATININE 0.56 mg/dL (0.55-1.02); TOTAL PROTEIN 5.6 g/dL (6.4-8.2)
[2018-05-31] MEDS ORDERED: POTASSIUM CHLORIDE 20 MEQ TAB.ER.PRT PO ONE ×2 (14:30→19:00)
[2018-05-31 15:23] VITALS: BP 169/72
[2018-05-31 19:03] VITALS: BP 148/65
[2018-06-01] MEDS: PIPERACILLIN/TAZO/PMX 4.5GM 100 ML IV SCH ×2 (00:56→06:14)
[2018-06-01 01:44] VITALS: BP 179/80
[2018-06-01 05:14] VITALS: BP 179/80
[2018-06-01] MEDS: HYDROcodone/APAP 10/325 MG TABLET PO PRN ×3 (05:15→14:48)
[2018-06-01] MEDS: GUAIFENESIN 200 MG TABLET PO SCH ×4 (05:15→19:49)
[2018-06-01] MEDS: METOPROLOL TARTRATE 25 MG TABLET PO SCH ×2 (05:15→19:49)
[2018-06-01 06:22] LABS: BASOPHILS # (AUTO) 0.05 x10^3/uL (0-0.1); BASOPHILS % (AUTO) 1 % (0-1); EOSINOPHILS # (AUTO) 0.22 x10^3/uL (0-0.4); EOSINOPHILS % (AUTO) 2 % (1-7); LYMPHOCYTES # (AUTO) 0.52 x10^3/uL (1-3.4); LYMPHOCYTES % (AUTO) 5 % (22-44); MD NO; MEAN CORPUSCULAR HEMOGLOBIN 25.8 pg (27.0-34.8); MEAN CORPUSCULAR HGB CONC 33.2 g/dL (32.4-35.8); MEAN CORPUSCULAR VOLUME 77.8 fL (80-100); MEAN PLATELET VOLUME 6.6 fL (7.4-10.4); MONOCYTES # (AUTO) 0.53 x10^3/uL (0.2-0.8); MONOCYTES % (AUTO) 5 % (2-9); NEUTROPHILS # (AUTO) 8.62 x10^3/uL (1.8-6.8); NEUTROPHILS % (AUTO) 87 % (42-75); PLATELET COUNT 426 x10^3/uL (130-400); RED CELL DISTRIBUTION WIDTH 14.7 % (9.6-15.2)
[2018-06-01 07:45] VITALS: BP 169/83
[2018-06-01] MEDS: DOCUSATE 100 MG CAPSULE PO SCH (08:31)
[2018-06-01] MEDS: SENNA/DOCUSATE TABLET PO SCH (08:31)
[2018-06-01 10:59] LABS: ALANINE AMINOTRANSFERASE 31 U/L (12-78); ALBUMIN 1.8 g/dL (3.4-5.0); ANION GAP 8 mmol/L (5-15); CALCIUM 8.4 mg/dL (8.5-10.1); CHLORIDE 103 mmol/L (98-107); CREATININE 0.58 mg/dL (0.55-1.02)
[2018-06-01 11:01] LABS: ALKALINE PHOSPHATASE 130 U/L (45-117); BILIRUBIN,TOTAL 0.4 mg/dL (0.2-1.0); TOTAL PROTEIN 5.8 g/dL (6.4-8.2)
[2018-06-01] MEDS ORDERED: POTASSIUM CHLORIDE 20 MEQ TAB.ER.PRT PO ONE (11:30)
[2018-06-01] MEDS ORDERED: ERTAPENEM 1 GM in SODIUM CHLORIDE 0.9% 50 ML IV SCH (13:00)
[2018-06-01 16:07] VITALS: BP 192/76
[2018-06-01] MEDS ORDERED: METO25TA35 PO (18:03)
[2018-06-01] MEDS ORDERED: SENN-177 PO (18:03)
[2018-06-01] MEDS ORDERED: POTA20TA14 PO (18:03)
[2018-06-01] MEDS ORDERED: ACET325T14 PO (18:03)
[2018-06-01] MEDS ORDERED: ERTA1VIA IV (18:11)
[2018-06-01 19:41] VITALS: BP 167/81
== END 2018-06-01 20:06 | disposition home or self-care (01) | DRG 853 ==
LOC: ED 05:37 → EDIP 05:46 → 5SO 06:19
PROVIDERS: ADMIT Internal Medicine; ATTEND Internal Medicine
PROC: 0W9B3ZZ Drainage of Left Pleural Cavity, Percutaneous Approach (ICD-10-PCS; principal; 2018-05-25)
PROC: 0BCL4ZZ Extirpation of Matter from Left Lung, Percutaneous Endoscopic Approach (ICD-10-PCS; 2018-05-28)
PROC: 0W9B40Z Drainage of Left Pleural Cavity with Drainage Device, Percutaneous Endoscopic Approach (ICD-10-PCS; 2018-05-28)
PROC: 02HV33Z Insertion of Infusion Device into Superior Vena Cava, Percutaneous Approach (ICD-10-PCS; 2018-06-01)
PROC: B5181ZA Fluoroscopy of Superior Vena Cava using Low Osmolar Contrast, Guidance (ICD-10-PCS; 2018-06-01)
PROC: B548ZZA Ultrasonography of Superior Vena Cava, Guidance (ICD-10-PCS; 2018-06-01)
DX: A41.9 Sepsis, unspecified organism (principal); J15.9 Unspecified bacterial pneumonia; J96.01 Acute respiratory failure with hypoxia; J86.9 Pyothorax without fistula; J90 Pleural effusion, not elsewhere classified; I47.1 Supraventricular tachycardia; N17.9 Acute kidney failure, unspecified; E87.6 Hypokalemia; F41.9 Anxiety disorder, unspecified; M54.9 Dorsalgia, unspecified; T39.395A Adverse effect of other nonsteroidal anti-inflammatory drugs [NSAID], initial encounter; I10 Essential (primary) hypertension; K59.00 Constipation, unspecified; Z85.42 Personal history of malignant neoplasm of other parts of uterus; Z85.828 Personal history of other malignant neoplasm of skin; Z87.891 Personal history of nicotine dependence; Z90.49 Acquired absence of other specified parts of digestive tract; Z90.710 Acquired absence of both cervix and uterus; Z93.3 Colostomy status; Y92.89 Other specified places as the place of occurrence of the external cause; Z79.899 Other long term (current) drug therapy
CPT/HCPCS: 32555; 36415; 36573; 36600; 71045; 71275; 80048; 80053; 80202; 82042; 82803; 82945; 83615; 83735; 83880; 83986; 84100; 84145; 84157; 84484; 85025; 85610; 85651; 85730; 86140; 86635; 86738; 87040; 87070; 87075; 87205; 87400; 87449; 88112; 88305; 89051; 93005; 93306; 94640; 96361; 96374; 96375; C1729; G0378; J0696; J1100; J1335; J1885; J2405; J2543; J2704; J3010; J3370; Q9967; C1751; J0330; J0360; J2060; J2765; J7030; J7050

== ENCOUNTER → 2018-06-21 | Outpatient (CLI) | payer MEDICARE ==
[~2018-06-21] MED LIST changes: +ACET325T14 PO; +CHLO25TA PO; +ERTA1VIA IV; +METO25TA35 PO; +OMNIPAQUE 350 MG/ML, 75ML BOTTLE ONE; +POTA20TA14 PO; +SENN-177 PO
== END | disposition home or self-care (01) ==
LOC: CFH 08:51
PROVIDERS: ATTEND Internal Medicine Infectious Disease
DX: J98.4 Other disorders of lung (principal); K44.9 Diaphragmatic hernia without obstruction or gangrene; J86.9 Pyothorax without fistula; J15.9 Unspecified bacterial pneumonia
CPT/HCPCS: 71260; Q9967

== ENCOUNTER → 2018-08-07 | Outpatient (CLI) | payer MEDICARE ==
[~2018-08-07] MED LIST changes: -OMNIPAQUE 350 MG/ML, 75ML BOTTLE ONE
== END | disposition home or self-care (01) ==
LOC: PETCFH 12:15
PROVIDERS: ATTEND Internal Medicine
DX: R91.8 Other nonspecific abnormal finding of lung field (principal)
CPT/HCPCS: 78815; A9552

== ENCOUNTER 2018-08-23 12:32 | Outpatient (CLI) | payer MEDICARE | END 2018-08-23 23:59 | disposition home or self-care (01) | LOC: CARD 12:32 | PROVIDERS: ATTEND Internal Medicine | DX: R91.8 Other nonspecific abnormal finding of lung field (principal); R04.2 Hemoptysis | CPT/HCPCS: 94060; 94726; 94729 ==